=== PATIENT | male | born 1960 ===

== ENCOUNTER 2019-10-07 18:43 | Emergency (ER) | payer OTHER ==
[~2019-10-07] VITALS: Ht 177.8 cm; Wt 72.6 kg
--- NOTE | 2019-10-07 18:47 | NUR ---
ED Nurse Note: Pt. was brought by ELIJAH from the street with ETOH and weakness. Per Pt, Pt has been sniffing speed for a long time but quit last Jul due to stroke. Pt decided to have 6 beers instead of sniffing speed.
--- NOTE | 2019-10-07 18:52 | Emergency Room Report ---
History of Present Illness General Chief Complaint: Alcohol Intoxication Present Illness HPI Disclaimer: Please note that this report is being documented using [employer]AG[employer] technology. This can lead to erroneous entry secondary to incorrect interpretation by the dictating instrument. HPI: 58-year-old male reported history of stroke presented from the street after drinking alcohol. Patient drank about 6 beers and was laying down on the sidewalk when police apparently saw him lying on the sidewalk and called 911. Patient has no medical complaints at this time. Patient was ambulatory with EMS. He denies any pain nausea vomiting or dizziness. PMH: Stroke PSH: Reviewed Social Hx: Drinks daily, cigarette smoker, denied illicit drug use Allergies: Coded Allergies: No Known Allergies (Unverified , 10/07/19) COVID-19 Screening Contact w/high risk pt: No Recent Travel to affected area: No Experienced COVID-19 symptoms?: No Patient History Reviewed Nursing Documentation: PMH: Agreed; PSxH: Agreed Review of Systems All Other Systems: negative except mentioned in HPI Physical Exam Vital Signs Date Time Temp Pulse Resp B/P (MAP) Pulse Ox O2 Delivery O2 Flow Rate FiO2 10/07/19 18:39 98.2 89 16 134/81 (98) 98 Room Air Sp02 EP Interpretation: reviewed, normal General Appearance: well appearing, no apparent distress Head: normocephalic, atraumatic Eyes: bilateral eye PERRL, bilateral eye EOMI ENT: hearing grossly normal, moist mucus membranes Neck: full range of motion, supple Respiratory: lungs clear, normal breath sounds, no rhonchi, no respiratory distress, no retraction, no wheezing Cardiovascular #1: normal peripheral pulses, regular rate, rhythm, no murmur Gastrointestinal: non tender, soft, non-distended, no guarding Neurologic: alert, oriented x3, no focal defects Skin: normal color, warm/dry Medical Decision Making Diagnostic Impression: Primary Impression: Acute alcoholic intoxication ER Course MDM: Patient presented from the street after drinking alcohol. He had no true medical complaints in the ER. Denied any pain. He was alert and oriented. Patient provided food in the ER. I did not see indication for any radiologic or laboratory studies. On reassessment patient remained in no acute distress and was stable for discharge to self-care. On reevaluation: Patient in no acute distress nontoxic-appearing alert and oriented x3, ambulatory with a steady gait. Plan-discharged to self-care. Last Vital Signs Date Time Temp Pulse Resp B/P (MAP) Pulse Ox O2 Delivery O2 Flow Rate FiO2 10/07/19 18:39 98.2 89 16 134/81 (98) 98 Room Air Status: improved Disposition: HOME, SELF-CARE Condition: Stable Eron Cullen M.D. October 07, 2019 18:52
[2019-10-07 18:57] VITALS: BP 134/81
--- NOTE | 2019-10-07 19:10 | NUR ---
ED Nurse Note: pt received from MINDY Bonilla. pt is in bed, does not appear to be in any distress at this time. he was provided with a sandwich and juice for nourishment
--- NOTE | 2019-10-07 19:40 | NUR ---
ED Nurse Note: pt was able to get onto his feet and ambulate slowly with a steady gait. pt provided with non-slip socks for comfort and safety
[2019-10-07 19:54] VITALS: BP 134/81
--- NOTE | 2019-10-07 19:54 | NUR ---
ER DISCHARGE NOTE: Patient is cleared to be discharged per ERMD, pt is aox4, on room air, with stable vital signs. pt was given dc instructions, pt was able to verbalize understanding, pt id band removed without complications. pt is able to ambulate with steady gait. pt took all belongings.
== END 2019-10-07 19:54 | disposition home or self-care (01) ==
LOC: EDBD 18:43 → EMR 19:40
DX: F10.129 Alcohol abuse with intoxication, unspecified (principal); F17.210 Nicotine dependence, cigarettes, uncomplicated; Z86.73 Personal history of transient ischemic attack (TIA), and cerebral infarction without residual deficits
CPT/HCPCS: 99281